=== PATIENT | female | born 1985 | race Caucasian/White ===

== ENCOUNTER 2022-10-21 07:18 | Emergency (ER) | payer MEDICAID ==
[~2022-10-21] VITALS: Ht 160 cm; Wt 77.5 kg
[2022-10-21 07:35] VITALS: BP 131/81
[2022-10-21 07:44] LABS: Urine Bacteria FEW /hpf (None Seen); Urine Blood 3+ /uL (Negative); Urine Specific Gravity 1.021 (1.001-1.035); Urine WBC 27 /hpf (0 - 5)
[2022-10-21 08:11] LABS: Basophils # (auto) 0.1 10 ^3/uL (0-0.2); Basophils % (auto) 0.5 % (0.0-2.0); Eosinophils # (auto) 0.1 10 ^3/uL (0-0.8); Hematocrit 40.7 % (36.0-46.0); Hemoglobin 13.5 g/dL (12.2-16.2); Lymphocytes # (auto) 1.3 10 ^3/uL (0.4-5.4); Mean Corpuscular Hemoglobin 28.8 pg (28.0-32.0); Mean Corpuscular Hgb Conc. 33.3 g/dL (32.0-36.0); Mean Corpuscular Volume 86.6 fL (80.0-100.0); Monocytes # (auto) 0.8 10 ^3/uL (0-1.3); Neutrophils # (auto) 7.9 10 ^3/uL (1.6-8.6); Neutrophils % (auto) 77.5 % (37.0-80.0); Nucleated Red Blood Cells % 0.1 %; Red Cell Distribution Width 12.8 % (11.8-14.3); White Blood Cell 10.2 10^3/uL (4.4-10.8)
[2022-10-21 08:17] LABS: Albumin 3.8 g/dL (3.4-5.0); Calcium 8.9 mg/dL (8.5-10.1); Potassium 4.1 mmol/L (3.5-5.1)
[2022-10-21 08:21] LABS: BUN/Creatinine Ratio 15.9; Bilirubin, Total 0.4 mg/dL (0.2-1.0)
[2022-10-21] MEDS ORDERED: HYDROcodone-ACET 5/325MG TAB PO ONE (08:30)
[2022-10-21] MEDS ORDERED: CEPH-322 PO (12:39)
== END 2022-10-21 14:08 | disposition home or self-care (01) ==
LOC: ER 07:18
DX: N39.0 Urinary tract infection, site not specified (principal); R10.2 Pelvic and perineal pain; Z87.442 Personal history of urinary calculi; Z98.890 Other specified postprocedural states
CPT/HCPCS: 36415; 76830; 76856; 80053; 81001; 84702; 85025

== ENCOUNTER 2022-10-28 05:56 | Emergency (ER) | payer MEDICAID ==
[~2022-10-28] VITALS: Ht 160 cm; Wt 77.3 kg
[~2022-10-28 05:56] MED LIST: CEPH-322 PO
[2022-10-28 06:57] LABS: Urine Bacteria FEW /hpf (None Seen); Urine Blood Negative /uL (Negative); Urine Mucus FEW (None Seen); Urine Specific Gravity 1.026 (1.001-1.035); Urine WBC 2 /hpf (0 - 5)
[2022-10-28] MEDS: KETOROLAC TROMETH 30 MG/ML 1ML VIAL IV ONE ×2 (07:15→07:50)
[2022-10-28 07:30] LABS: Basophils # (auto) 0.1 10 ^3/uL (0-0.2); Basophils % (auto) 0.6 % (0.0-2.0); Eosinophils # (auto) 0 10 ^3/uL (0-0.8); Eosinophils % (auto) 0.3 % (0.0-7.0); Hematocrit 41.5 % (36.0-46.0); Lymphocytes # (auto) 0.9 10 ^3/uL (0.4-5.4); Lymphocytes % (auto) 8.7 % (10.0-50.0); Mean Corpuscular Hemoglobin 28.8 pg (28.0-32.0); Mean Corpuscular Hgb Conc. 33.7 g/dL (32.0-36.0); Mean Corpuscular Volume 85.4 fL (80.0-100.0); Monocytes # (auto) 0.9 10 ^3/uL (0-1.3); Monocytes % (auto) 8.7 % (0.0-12.0); Neutrophils # (auto) 8.8 10 ^3/uL (1.6-8.6); Neutrophils % (auto) 81.7 % (37.0-80.0); Nucleated Red Blood Cells % 0.1 %; Red Blood Cells 4.86 10^6/uL (4.0-5.20); Red Cell Distribution Width 12.9 % (11.8-14.3); White Blood Cell 10.8 10^3/uL (4.4-10.8)
[2022-10-28] MEDS ORDERED: HYDROcodone-ACET 5/325MG TAB PO ONE (07:30)
[2022-10-28 07:46] LABS: Albumin 3.8 g/dL (3.4-5.0); Calcium 8.9 mg/dL (8.5-10.1); Potassium 4.1 mmol/L (3.5-5.1)
[2022-10-28 07:51] LABS: BUN/Creatinine Ratio 13.6; Bilirubin, Total 0.6 mg/dL (0.2-1.0)
[2022-10-28] MEDS ORDERED: LACTATED RINGER'S 1,000 ML IV ONE (08:00)
[2022-10-28] MEDS ORDERED: CIPR-173 PO (12:06)
[2022-10-28] MEDS ORDERED: ONDA-144 PO (12:06)
[2022-10-28] MEDS ORDERED: METR500T14 PO (12:06)
[2022-10-28] MEDS ORDERED: HYDR1TAB97 PO (12:06)
[2022-10-28 14:05] VITALS: BP 138/78
== END 2022-10-28 14:09 | disposition home or self-care (01) ==
LOC: ER 05:56
DX: K57.92 Diverticulitis of intestine, part unspecified, without perforation or abscess without bleeding (principal); Z87.442 Personal history of urinary calculi; Z98.890 Other specified postprocedural states
CPT/HCPCS: 36415; 74176; 76856; 80053; 81001; 81025; 85025; 87086; 96361; 96374; 99285; J1885

== ENCOUNTER 2024-06-08 15:41 | Inpatient (IN) | payer MEDICAID ==
[~2024-06-08] VITALS: Ht 160 cm; Wt 83.6 kg
[~2024-06-08 15:41] MED LIST changes: -CEPH-322 PO; +CEPH250C PO; +CIPR-173 PO; +HYDR1TAB97 PO; +METR-344 PO; +ONDA-144 PO
[2024-06-08 16:20] LABS: Urine WBC None Seen /hpf (0 - 5)
[2024-06-08 16:33] LABS: Urine Bacteria FEW /hpf (None Seen); Urine Blood Negative /uL (Negative); Urine Clarity Clear (Clear); Urine Color Light-Yellow (Yellow); Urine Protein, UAD Negative (Negative); Urine Specific Gravity 1.008 (1.001-1.035); Urine Urobilinogen Normal (Negative)
[2024-06-08] MEDS: SODIUM CHLORIDE 0.9% 1,000 ML IV ONE (17:22)
[2024-06-08] MEDS: ACETAMINOPHEN 500 MG TAB PO ONE ×2 (18:08→22:22)
[2024-06-08 19:16] LABS: Basophils # (auto) 0 10 ^3/uL (0-0.2); Basophils % (auto) 0.3 % (0.0-2.0); Eosinophils # (auto) 0 10 ^3/uL (0-0.8); Monocytes # (auto) 0.8 10 ^3/uL (0-1.3)
[2024-06-08 19:18] LABS: Eosinophils % (auto) 0.1 % (0.0-7.0); Hematocrit 40.1 % (36.0-46.0); Hemoglobin 13.3 g/dL (12.2-16.2); Lymphocytes # (auto) 1.6 10 ^3/uL (0.4-5.4); Lymphocytes % (auto) 11.5 % (10.0-50.0); Mean Corpuscular Hemoglobin 26.8 pg (28.0-32.0); Mean Corpuscular Hgb Conc. 33.3 g/dL (32.0-36.0); Mean Corpuscular Volume 80.5 fL (80.0-100.0); Monocytes % (auto) 6.2 % (0.0-12.0); Neutrophils # (auto) 11.1 10 ^3/uL (1.6-8.6); Neutrophils % (auto) 81.9 % (37.0-80.0); Platelet Count (auto) 326 10^3/uL (140-450); Red Blood Cells 4.98 10^6/uL (4.0-5.20); Red Cell Distribution Width 14.4 % (11.8-14.3); White Blood Cell 13.6 10^3/uL (4.4-10.8)
[2024-06-08 19:31] LABS: Alanine Aminotransferase 22 U/L (7-40); Albumin 4.3 g/dL (3.2-4.8); Alkaline Phosphatase 68 U/L (46-116); Anion Gap 9 (5-15); Aspartate Aminotransferase 12 U/L (13-40); BUN/Creatinine Ratio 8.2 (10.0-20.0); Bilirubin, Total 0.4 mg/dL (0.2-1.0); Blood Urea Nitrogen 7 mg/dL (9-23); Calcium 8.9 mg/dL (8.7-10.4); Carbon Dioxide 22 mmol/L (20-30); Chloride 107 mmol/L (98-107); Glucose 88 mg/dL (74-106); Sodium 138 mmol/L (136-145); Total Protein 7.1 g/dL (5.7-8.2)
[2024-06-08] MEDS ORDERED: cefTRIAXone 2GM/50ML D5W 50 ML IV ONE (21:00)
[2024-06-08] MEDS ORDERED: TEMAZEPAM 15 MG CAP PO PRN (22:00)
[2024-06-08] MEDS ORDERED: MORPHINE SULFATE INJ 2 MG/ml SYRG IV PRN (22:00)
[2024-06-08] MEDS ORDERED: ONDANSETRON HCL 4 MG/2 ML VIAL IV PRN (22:00)
[2024-06-08] MEDS: metroNIDAZOLE 500MG/100ML 100 ML IV SCH (22:22)
[2024-06-08] MEDS: cefTRIAXone 1GM/50ML D5W 50 ML IV ONE (23:36)
[2024-06-09] MEDS: HYDROcodone-ACET 5/325MG TAB PO PRN (01:24)
[2024-06-09] MEDS: cefTRIAXone 1GM/50ML D5W 50 ML IV ONE (01:25)
[2024-06-09 05:00] VITALS: BP 107/69; PULSE 87; RESP 18; TEMP 98; O2SAT 98
[2024-06-09 06:19] LABS: Chloride 108 mmol/L (98-107); Potassium 3.8 mmol/L (3.5-5.1); Sodium 139 mmol/L (136-145)
[2024-06-09 06:20] LABS: Anion Gap 6 (5-15); Carbon Dioxide 25 mmol/L (20-30)
[2024-06-09 06:21] LABS: Calcium 9.2 mg/dL (8.7-10.4)
[2024-06-09 06:25] LABS: BUN/Creatinine Ratio 8.8 (10.0-20.0); Blood Urea Nitrogen 7 mg/dL (9-23); Glucose 81 mg/dL (74-106)
[2024-06-09 06:28] LABS: Basophils # (auto) 0 10 ^3/uL (0-0.2); Basophils % (auto) 0.4 % (0.0-2.0); Eosinophils # (auto) 0 10 ^3/uL (0-0.8); Eosinophils % (auto) 0.4 % (0.0-7.0); Hematocrit 38.6 % (36.0-46.0); Lymphocytes # (auto) 1.6 10 ^3/uL (0.4-5.4); Lymphocytes % (auto) 14.4 % (10.0-50.0); Mean Corpuscular Hemoglobin 27.1 pg (28.0-32.0); Mean Corpuscular Hgb Conc. 33.5 g/dL (32.0-36.0); Mean Corpuscular Volume 80.8 fL (80.0-100.0); Monocytes # (auto) 0.9 10 ^3/uL (0-1.3); Monocytes % (auto) 8.5 % (0.0-12.0); Neutrophils # (auto) 8.4 10 ^3/uL (1.6-8.6); Neutrophils % (auto) 76.3 % (37.0-80.0); Platelet Count (auto) 285 10^3/uL (140-450); Red Blood Cells 4.78 10^6/uL (4.0-5.20); Red Cell Distribution Width 14.3 % (11.8-14.3); White Blood Cell 10.9 10^3/uL (4.4-10.8)
[2024-06-09] MEDS: cefTRIAXone 2GM/50ML D5W 50 ML IV SCH (08:29)
[2024-06-09 08:53] VITALS: BP 110/67; PULSE 94; RESP 16; TEMP 98.7; O2SAT 99
[2024-06-09 12:48] VITALS: BP 115/79; PULSE 92; RESP 18; TEMP 98; O2SAT 97
[2024-06-09] MEDS: LACTATED RINGER'S 1,000 ML IV ONE (14:26)
[2024-06-09 17:00] VITALS: BP 115/70; PULSE 93; RESP 16; TEMP 97.5; O2SAT 100
[2024-06-09] MEDS: ACETAMINOPHEN 325 MG TAB PO PRN (18:46)
[2024-06-09 21:00] VITALS: BP 105/64; PULSE 96; RESP 18; TEMP 98.4; O2SAT 96
[2024-06-10 01:00] VITALS: BP 115/67; PULSE 91; RESP 18; TEMP 98.2; O2SAT 96
[2024-06-10 05:00] VITALS: BP 110/74; PULSE 68; RESP 18; TEMP 98.2; O2SAT 98
[2024-06-10 06:03] LABS: Basophils # (auto) 0.1 10 ^3/uL (0-0.2); Basophils % (auto) 0.6 % (0.0-2.0); Eosinophils # (auto) 0.1 10 ^3/uL (0-0.8); Hemoglobin 13.9 g/dL (12.2-16.2); Lymphocytes # (auto) 1.8 10 ^3/uL (0.4-5.4); Monocytes # (auto) 0.8 10 ^3/uL (0-1.3)
[2024-06-10 06:05] LABS: Eosinophils % (auto) 1.2 % (0.0-7.0); Hematocrit 41.6 % (36.0-46.0); Lymphocytes % (auto) 21.5 % (10.0-50.0); Mean Corpuscular Hemoglobin 27.1 pg (28.0-32.0); Mean Corpuscular Hgb Conc. 33.4 g/dL (32.0-36.0); Mean Corpuscular Volume 81.2 fL (80.0-100.0); Monocytes % (auto) 9.4 % (0.0-12.0); Neutrophils # (auto) 5.7 10 ^3/uL (1.6-8.6); Neutrophils % (auto) 67.3 % (37.0-80.0); Nucleated Red Blood Cells % 0.2 %; Platelet Count (auto) 287 10^3/uL (140-450); Red Blood Cells 5.12 10^6/uL (4.0-5.20); Red Cell Distribution Width 14.5 % (11.8-14.3); White Blood Cell 8.5 10^3/uL (4.4-10.8)
[2024-06-10 08:04] LABS: Chloride 109 mmol/L (98-107); Potassium 3.8 mmol/L (3.5-5.1); Sodium 139 mmol/L (136-145)
[2024-06-10 08:05] LABS: Anion Gap 8 (5-15); Carbon Dioxide 22 mmol/L (20-30)
[2024-06-10 08:06] LABS: Calcium 9.5 mg/dL (8.7-10.4)
[2024-06-10 08:10] LABS: Glucose 77 mg/dL (74-106)
[2024-06-10 08:12] LABS: BUN/Creatinine Ratio 6.4 (10.0-20.0); Blood Urea Nitrogen < 5 mg/dL (9-23)
[2024-06-10 09:03] VITALS: BP 114/68; PULSE 85; RESP 16; TEMP 98; O2SAT 97
[2024-06-10 13:20] VITALS: BP 117/78; PULSE 101; RESP 17; TEMP 98.6; O2SAT 98
[2024-06-10] MEDS ORDERED: CIP500T PO (13:47)
[2024-06-10] MEDS ORDERED: [UNRECOGNIZED DRUG - CODE] PO (13:47)
[2024-06-10] MEDS ORDERED: ACET-1882 PO (13:47)
[2024-06-11] MEDS ORDERED: ZOFR4T PO (10:04)
== END 2024-06-10 13:00 | disposition home or self-care (01) | DRG 720 ==
LOC: ER 15:41 → OVERFLOW 22:01 → WEST WING 22:01
PROVIDERS: ADMIT Internal Medicine Pulmonary Disease; ATTEND Anesthesiology
DX: A41.9 Sepsis, unspecified organism (principal); F17.200 Nicotine dependence, unspecified, uncomplicated; K57.32 Diverticulitis of large intestine without perforation or abscess without bleeding; Z79.891 Long term (current) use of opiate analgesic; Z79.899 Other long term (current) drug therapy; Z87.442 Personal history of urinary calculi
CPT/HCPCS: 36415; 74176; 80048; 80053; 81001; 83605; 84702; 85025; 96361; 96365; 99291; G0378; J3490